=== PATIENT | female | born 1980 | race Caucasian/White ===

== ENCOUNTER 2017-02-06 09:41 | Emergency (ER) | payer SELFPAY ==
[2017-02-06 09:51] VITALS: BP 121/80
--- NOTE | 2017-02-06 10:04 | UC ---
Upper Extremity HPI - HPI Summary HPI Summary: 36 y/o female presents to the urgent care c/o RT middle finger pain after a cow stepped on her hand about 4 days. Pain is 6/10 with movement localized at the base of the finger with some bruising and swelling. Pt denies numbness and tingling over the fingers, fever, SOB, chest pain, N/V/D. Pt has not taking anything to alleviate symptoms. - History of Current Complaint Chief Complaint: UCUpperExtremity Stated Complaint: HAND INJURY Time Seen by Provider: 02/06/17 10:01 Hx Obtained From: Patient Hx Last Menstrual Period: 01/22/17 ?: No Onset/Duration: Sudden Onset, Lasting Days - 4 days Severity Initially: Moderate Severity Currently: Moderate Pain Intensity: 6 Pain Scale Used: 0-10 Numeric Location Of Pain: Is Discrete @ - RT middle finger Aggravating Factor(s): Movement, Lifting, Flexion, Extension Alleviating Factor(s): OTC Meds - miel relief Associated Signs And Symptoms: Positive: Swelling, Bruising. Negative: Fever, Weakness, Numbness/Tingling - Risk Factors Non-Orthopedic Risk Factor: Negative DVT Risk Factors: Negative Septic Arthritis Risk Factor: Negative - Allergies/Home Medications Allergies/Adverse Reactions: Allergies Allergy/AdvReac Type Severity Reaction Status Date / Time No Known Allergies Allergy Verified 02/06/17 09:44 PMH/Surg Hx/FS Hx/Imm Hx Previously Healthy: Yes Endocrine History: Dyslipidemia - Surgical History Surgical History: None Surgery Procedure, Year, and Place: tubal ligation - Family History Known Family History: Negative: Blood Disorder Family History: Dyslipidemia - Social History Alcohol Use: None Substance Use Type: None Smoking Status (MU): Never Smoked Tobacco Review of Systems Constitutional: Negative Skin: Negative Eyes: Negative ENT: Negative Respiratory: Negative Cardiovascular: Negative Gastrointestinal: Negative Genitourinary: Negative Motor: Negative Neurovascular: Negative Musculoskeletal: Other: - RT middle finger pain s/p injury Neurological: Negative Psychological: Negative Is Patient Immunocompromised?: No All Other Systems Reviewed And Are Negative: Yes Physical Exam Triage Information Reviewed: Yes Appearance: Well-Appearing, No Pain Distress, Well-Nourished Vital Signs: Initial Vital Signs Temp 98 F 02/06/17 09:47 Pulse 61 02/06/17 09:47 Resp 16 09/15/17 09:47 BP 121/80 02/06/17 09:47 Pulse Ox 100 02/06/17 09:47 Vital Signs Reviewed: Yes Eye Exam: Normal Eyes: Positive: Conjunctiva Clear - PERRLA, EOMI ENT Exam: Normal ENT: Positive: Normal ENT inspection, Hearing grossly normal, Pharynx normal, TMs normal Neck exam: Normal Neck: Positive: Supple, Nontender, No Lymphadenopathy Respiratory Exam: Normal Respiratory: Positive: Chest non-tender, Lungs clear, Normal breath sounds, No respiratory distress Cardiovascular Exam: Normal Cardiovascular: Positive: RRR, No Murmur, Pulses Normal, Brisk Capillary Refill Abdominal Exam: Normal Abdomen Description: Positive: Nontender, No Organomegaly, Soft. Negative: CVA Tenderness (R), CVA Tenderness (L) Bowel Sounds: Positive: Present Neurological Exam: Normal Neurological: Positive: Other: - RT #3 phalanx with moderate echymosis and brusing at the base of PIPJ, tender to palpation. mild swelling. Decrease ROM of phalanx due to pain. However FROM of hand and wrist. brisk capillary refill of all phalnxes. sensation intact, pulses WNL. Psychological Exam: Normal Skin Exam: Normal Upper Extremity Course/Dx - Course Course Of Treatment: 36 y/o female presents to the urgent care c/o RT middle finger pain after a cow stepped on her hand about 4 days. Pain is 6/10 with movement localized at the base of the finger with some bruising and swelling. Pt denies numbness and tingling over the fingers, fever, SOB, chest pain, N/V/ D.Pt has not taking anything to alleviate symptoms. Hx obtained. RT Middle finger X-ray ordered. Impression: Minimally displaced fracture of the base medial aspect of the middle phalanx of the RT 3rd digit. Toradol IM inj ordered. Applied by Nurse. Pt tolerated well IM inj. Pain decrease, Pt felt better. Pt's finger immobilized with a finger splint and also body tape it with #4 finger, Pt neurovascular intact. Pt Rx Naproxen PO to alleviate pain and swelling. Advised RICE and strongly advised to f/u with ORthopedic Dr Dai in 2 days for further evaluation and treatment. Pt understood and agreed with plan of care. Pt left the clinic ambulating A&OX3 - Differential Dx/Diagnosis Differential Diagnosis/HQI/PQRI: Contusion, Fracture (Closed), Hematoma, Strain , Sprain Provider Diagnoses: 1- Rt #3 phalanx with a minimally displaced fracture s/p injury Discharge - Discharge Plan Condition: Stable Disposition: HOME Prescriptions: Naproxen TAB* [Naprosyn 250 mg TAB*] 500 mg PO Q8H PRN #30 tab PRN Reason: Pain Patient Education Materials: Finger Fracture (ED) Referrals: [facility] [[facility]] Mannie Dai MD [Medical Doctor] - 2 Days No Primary Care Phys,NOPCP [Primary Care Provider] - Additional Instructions: 1-Please take medications as directed to alleviate pain and swelling. 2-Please apply ice, keep your thumb immobilized with the splint. 3- Please f/u with Orthopedic DR Dai 2-3 days for further evaluation and treatment of your Middle finger fracture
[2017-02-06] MEDS ORDERED: Ketorolac INJ* 60 MG/2 ML VIAL IM ONE (10:14)
--- NOTE | 2017-02-06 10:58 | RAD ---
HISTORY: Right hand trauma COMPARISONS: None VIEWS: 3, Frontal, lateral, and oblique views of the third digit of the right hand FINDINGS: BONE DENSITY: Normal. BONES: There is a minimally displaced fracture of the ulnar (medial) aspect of the base of the middle phalanx of the third digit at the PIP joint JOINTS: There is no arthropathy. ALIGNMENT: There is no dislocation. SOFT TISSUES: Unremarkable. OTHER FINDINGS: None. IMPRESSION: MINIMALLY DISPLACED FRACTURE OF THE BASE OF THE MIDDLE PHALANX OF THE THIRD DIGIT
== END 2017-02-06 11:47 | disposition home or self-care (01) ==
LOC: UCEAST 09:41
DX: S62.622A Displaced fracture of middle phalanx of right middle finger, initial encounter for closed fracture (principal); W55.29XA Other contact with cow, initial encounter; Y93.9 Activity, unspecified; Y92.9 Unspecified place or not applicable; E78.5 Hyperlipidemia, unspecified
CPT/HCPCS: 73140; 96372; 99213; G0463; J1885